=== PATIENT | male | born 1990 | race African-American/Black ===

== ENCOUNTER 2017-11-22 00:37 | Emergency (ER) | payer OTHER ==
--- NOTE | 2017-11-22 00:45 | ER Report ---
History and Physical Time Seen By MD: 00:44 Hx. of Stated Complaint: Emergency senior care HPI/ROS CHIEF COMPLAINT: emergency senior care for suicidal ideation HISTORY OF PRESENT ILLNESS: This is a 26 year old male. He is here with the [employer] [employer] for emergency senior care for depression and suicidal ideation. 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 He was planning on returning to [place], [place] and doing something where he would end his life and no one would find him. He has been depressed. No self harm. Denies any other health problems at this time. Came to light because he had been messaging family back home about his wanting to . They contacted law enforcement here who picked him up to bring him to the hospital. Stressors based on relationship problems and isolation. He is concerned about losing his job by being detained here. REVIEW OF SYSTEMS: Constitutional: No fever or chills. Eyes: No vision changes. ENT: No sore throat. No congestion. Cardiovascular: No chest pain. No palpitations. Respiratory: No cough. No shortness of breath. Gastrointestinal: No abdominal pain. No nausea or vomiting. Genitourinary: No problems with urination. Musculoskeletal: No musculoskeletal pain. Skin: No rashes. Neurological: No dizziness or headache. Allergies: Coded Allergies: No Known Drug Allergies (Unverified , 11/22/17) Home Meds Reported Medications Multivits,Ca,Minerals/Iron/Fa (THERA-M TABLET) 1 Each Tablet, 1 EACH PO DAILY 11/22/17 Nicotine (NICOTROL) 10 Mg/Inh Ctr, 10 MG INH PRN Y for NICOTINE REPLACEMENT 11/22/17 Fluoxetine Hcl (PROZAC) 20 Mg Capsule, 20 MG PO QDAY, CAPSULE 11/22/17 Reviewed Nurses Notes: Yes Constitutional Vital Sign - Last 24 Hours 11/22/17 11/22/17 00:38 04:25 Temp 98.0 Pulse 109 96 Resp 16 12 B/P (MAP) 162/127 170/120 (137) Pulse Ox 98 95 O2 Delivery Room Air Room Air Physical Exam General Appearance: The patient is alert, has no immediate need for airway protection and no current signs of toxicity. Eyes: Pupils equal and round no injection. ENT: Normal oral mucosa. Moist mucous membranes. Neck: Neck is supple and non tender. Respiratory: Chest is non tender, lungs are clear to auscultation. Cardiac: regular rate and rhythm Gastrointestinal: Abdomen is soft and non tender, no masses, bowel sounds normal. Musculoskeletal: Extremities have full range of motion. Skin: No rashes or lesions. DIFFERENTIAL DIAGNOSIS: After history and physical exam differential diagnosis was considered for suicidal ideation on emergency senior care Medical Decision Making Data Points Result Diagram: 11/22/1730911/22/17 031 Laboratory Hematology Test 11/22/17 03:10 11/22/17 03:30 Red Blood Count 5.50 M/uL (4.00-5.60) Mean Corpuscular Volume 85.4 fL (80.0-96.0) Mean Corpuscular Hemoglobin 29.8 pg (26.0-33.0) Mean Corpuscular Hemoglobin Concent 34.9 g/dL (32.0-36.0) Red Cell Distribution Width 13.8 % (11.5-14.5) Mean Platelet Volume 7.7 fL (7.2-11.1) Neutrophils (%) (Auto) 48.3 % (39.4-72.5) Lymphocytes (%) (Auto) 41.6 % (17.6-49.6) Monocytes (%) (Auto) 6.6 % (4.1-12.4) Eosinophils (%) (Auto) 2.5 % (0.4-6.7) Basophils (%) (Auto) 1.0 % (0.3-1.4) Nucleated RBC Relative Count (auto) 0.0 /100WBC Neutrophils # (Auto) 3.9 K/uL (2.0-7.4) Lymphocytes # (Auto) 3.4 K/uL (1.3-3.6) Monocytes # (Auto) 0.5 K/uL (0.3-1.0) Eosinophils # (Auto) 0.2 K/uL (0.0-0.5) Basophils # (Auto) 0.1 K/uL (0.0-0.1) Nucleated RBC Absolute Count (auto) 0.00 K/uL Sodium Level 140 mmol/L (137-145) Potassium Level 3.4 mmol/L (3.5-5.0) Chloride Level 101 mmol/L (98-107) Carbon Dioxide Level 27 mmol/L (22-30) Blood Urea Nitrogen 8 mg/dl (9-21) Creatinine 0.90 mg/dl (0.66-1.25) Glomerular Filtration Rate Calc > 60.0 Random Glucose 118 mg/dl (75-110) Calcium Level 9.6 mg/dl (8.4-10.2) Magnesium Level 2.0 mg/dl (1.7-2.2) Total Bilirubin 0.6 mg/dl (0.2-1.3) Aspartate Amino Transf (AST/SGOT) 34 U/L (0-35) Alanine Aminotransferase (ALT/SGPT) 58 U/L (0-56) Alkaline Phosphatase 73 U/L (0-126) Total Protein 8.5 g/dl (6.3-8.2) Albumin 4.7 g/dl (3.5-5.0) Salicylates Level < 10 mg/L Salicylate Last Dose Date unk Acetaminophen Level < 10 ug/ml Serum Alcohol < 10 mg/dl Urine Color Yellow Urine Clarity Clear Urine pH 6.0 pH (4.8-9.5) Urine Specific [place] 1.010 Urine Protein Negative mg/dL (NEGATIVE) Urine Glucose (UA) Negative mg/dL (NEGATIVE) Urine Ketones 20 mg/dL (NEGATIVE) Urine Blood Negative (NEGATIVE) Urine Nitrite Negative (NEGATIVE) Urine Bilirubin Negative (NEGATIVE) Urine Urobilinogen Negative mg/dL (0.2-1.9) Urine Leukocyte Esterase Negative (NEGATIVE) Urine RBC None /HPF (0-2/HPF) Urine WBC 2 /HPF (0-5/HPF) Urine Squamous Epithelial Cells Few /LPF (</=FEW) Urine Bacteria Negative /HPF (NONE-FEW) Urine Mucus Few /HPF (NONE-FEW) Urine Opiates Screen Negative Urine Barbiturates Screen Negative Ur Tricyclic Antidepressants Screen Negative Urine Phencyclidine Screen Negative Urine Amphetamines Screen Negative Urine Benzodiazepines Screen Negative Urine Cocaine Screen Negative Urine Cannabinoids Screen Negative Chemistry Test 11/22/17 03:10 11/22/17 03:30 White Blood Count 8.1 k/uL (4.5-11.0) Red Blood Count 5.50 M/uL (4.00-5.60) Hemoglobin 16.4 g/dL (14.0-18.0) Hematocrit 46.9 % (42.0-52.0) Mean Corpuscular Volume 85.4 fL (80.0-96.0) Mean Corpuscular Hemoglobin 29.8 pg (26.0-33.0) Mean Corpuscular Hemoglobin Concent 34.9 g/dL (32.0-36.0) Red Cell Distribution Width 13.8 % (11.5-14.5) Platelet Count 216 K/uL (150-450) Mean Platelet Volume 7.7 fL (7.2-11.1) Neutrophils (%) (Auto) 48.3 % (39.4-72.5) Lymphocytes (%) (Auto) 41.6 % (17.6-49.6) Monocytes (%) (Auto) 6.6 % (4.1-12.4) Eosinophils (%) (Auto) 2.5 % (0.4-6.7) Basophils (%) (Auto) 1.0 % (0.3-1.4) Nucleated RBC Relative Count (auto) 0.0 /100WBC Neutrophils # (Auto) 3.9 K/uL (2.0-7.4) Lymphocytes # (Auto) 3.4 K/uL (1.3-3.6) Monocytes # (Auto) 0.5 K/uL (0.3-1.0) Eosinophils # (Auto) 0.2 K/uL (0.0-0.5) Basophils # (Auto) 0.1 K/uL (0.0-0.1) Nucleated RBC Absolute Count (auto) 0.00 K/uL Glomerular Filtration Rate Calc > 60.0 Calcium Level 9.6 mg/dl (8.4-10.2) Magnesium Level 2.0 mg/dl (1.7-2.2) Total Bilirubin 0.6 mg/dl (0.2-1.3) Aspartate Amino Transf (AST/SGOT) 34 U/L (0-35) Alanine Aminotransferase (ALT/SGPT) 58 U/L (0-56) Alkaline Phosphatase 73 U/L (0-126) Total Protein 8.5 g/dl (6.3-8.2) Albumin 4.7 g/dl (3.5-5.0) Salicylates Level < 10 mg/L Salicylate Last Dose Date unk Acetaminophen Level < 10 ug/ml Serum Alcohol < 10 mg/dl Urine Color Yellow Urine Clarity Clear Urine pH 6.0 pH (4.8-9.5) Urine Specific [place] 1.010 Urine Protein Negative mg/dL (NEGATIVE) Urine Glucose (UA) Negative mg/dL (NEGATIVE) Urine Ketones 20 mg/dL (NEGATIVE) Urine Blood Negative (NEGATIVE) Urine Nitrite Negative (NEGATIVE) Urine Bilirubin Negative (NEGATIVE) Urine Urobilinogen Negative mg/dL (0.2-1.9) Urine Leukocyte Esterase Negative (NEGATIVE) Urine RBC None /HPF (0-2/HPF) Urine WBC 2 /HPF (0-5/HPF) Urine Squamous Epithelial Cells Few /LPF (</=FEW) Urine Bacteria Negative /HPF (NONE-FEW) Urine Mucus Few /HPF (NONE-FEW) Urine Opiates Screen Negative Urine Barbiturates Screen Negative Ur Tricyclic Antidepressants Screen Negative Urine Phencyclidine Screen Negative Urine Amphetamines Screen Negative Urine Benzodiazepines Screen Negative Urine Cocaine Screen Negative Urine Cannabinoids Screen Negative Toxicology Test 11/22/17 03:10 11/22/17 03:30 Salicylates Level < 10 mg/L Salicylate Last Dose Date unk Acetaminophen Level < 10 ug/ml Serum Alcohol < 10 mg/dl Urine Opiates Screen Negative Urine Barbiturates Screen Negative Ur Tricyclic Antidepressants Screen Negative Urine Phencyclidine Screen Negative Urine Amphetamines Screen Negative Urine Benzodiazepines Screen Negative Urine Cocaine Screen Negative Urine Cannabinoids Screen Negative Urinalysis Test 11/22/17 03:30 Urine Color Yellow Urine Clarity Clear Urine pH 6.0 pH (4.8-9.5) Urine Specific [place] 1.010 Urine Protein Negative mg/dL (NEGATIVE) Urine Glucose (UA) Negative mg/dL (NEGATIVE) Urine Ketones 20 mg/dL (NEGATIVE) Urine Blood Negative (NEGATIVE) Urine Nitrite Negative (NEGATIVE) Urine Bilirubin Negative (NEGATIVE) Urine Urobilinogen Negative mg/dL (0.2-1.9) Urine Leukocyte Esterase Negative (NEGATIVE) Urine RBC None /HPF (0-2/HPF) Urine WBC 2 /HPF (0-5/HPF) Urine Squamous Epithelial Cells Few /LPF (</=FEW) Urine Bacteria Negative /HPF (NONE-FEW) Urine Mucus Few /HPF (NONE-FEW) ED Course/Re-evaluation ED Course The patient was opposed to having his blood drawn. I did speak with them and actually called and spoke with Dr. Jaramillo on speaker phone with the patient. Discussed that having the blood tests was not optional based on the protocols associated with being emergency senior care was regarding this. The patient did voice that he felt like his rights were being violated and I told him that I would definitely document this in the chart for him. Blood was obtained, no age or abnormalities noted. Urine also obtained. Discussed the case with Dr. Jaramillo and the patient will be admitted to behavioral health. Decision to Disposition Date: Nov 22, 2017 Decision to Disposition Time: 04:19 Depart Departure Latest Vital Signs Vital Signs Date Time Temp Pulse Resp B/P (MAP) Pulse Ox O2 Delivery O2 Flow Rate FiO2 11/22/17 04:25 96 12 170/120 (137) 95 Room Air 11/22/17 00:38 98.0 Impression: Primary Impression: Suicidal ideation Condition: Condition Unchanged Disposition: XFER TO [facility] LOIS BROWNING MD Nov 22, 2017 00:44
--- NOTE | 2017-11-22 01:13 | BHS - Psychiatric Evaluation ---
ER - Title 25 MHE Evaluation Title 25 Evaluation Patient Detained By: Law Enforcement Referral Source: Law enforcement, patient Date Patient Detained: Nov 22, 2017 Time Patient Detained: 00:49 Date Nursing Home Expires: Nov 26, 2017 Time Nursing Home Expires: 00:01 Legal Status: Police Hold: No Legal Status: Residence: Other ([place]) Assessment Data Provided By: Law Enforcement HPI/ROS: CHIEF COMPLAINT: emergency fpc for suicidal ideation HISTORY OF PRESENT ILLNESS: This is a 26 year old male. He is here with the [place] [employer] for emergency fpc for depression and suicidal ideation. 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 He was planning on returning to [place], [place] and doing something where he would end his life and no one would find him. He has been depressed. No self harm. Denies any other health problems at this time. Came to light because he had been messaging family back home about his wanting to . They contacted law enforcement here who picked him up to bring him to the hospital. Stressors based on relationship problems and isolation. He is concerned about losing his job by being detained here. REVIEW OF SYSTEMS: Constitutional: No fever or chills. Eyes: No vision changes. ENT: No sore throat. No congestion. Cardiovascular: No chest pain. No palpitations. Respiratory: No cough. No shortness of breath. Gastrointestinal: No abdominal pain. No nausea or vomiting. Genitourinary: No problems with urination. Musculoskeletal: No musculoskeletal pain. Skin: No rashes. Neurological: No dizziness or headache. Admit due to SI or Attempt: Yes Suicide Plan: No Plan Current Suicide Plan No definitive plan Alcohol or Drugs Involved: No Is Patient Info Reliable: Yes Is Collateral Info Reliable: Yes Mental Status Exam General Appearance: Cooperative, Polite, Good Interaction, Tearful Speech: Clear, Spontaneous, Normal Rate, Normal Rhythm, Normal Volume, Normal Tone Mood: Dysthmic/Depressed Affect: Sad Thought Process: Organized Thought Content: Suicidal Ideation, No Homicidal Ideation Sensorium: Clear Cognition: Alert & Oriented-Person, Alert & Oriented-Place, Alert & Oriented- Time, Hdwma-Dpzxwyqu-Ddmsxoilg Memory: Other (Normal) Insight Judgment: Good Current Risk & History Current Dangerous Risk Assessm: Current Suicide Ideation Past Dangerous Risk Assessm: Suicide Ideation-last 6mo Previous Suicide Attempt: No Previous Attempt Previous Psychiatric Illness: No Previous Psychiatric Treatment: No Risk Assessment & Disposition Evaluated Risk Assessment: Risk evaluated to be high requiring further evaluation by psychiatry. Impression: Primary Impression: Suicidal ideation Meets Mental Illness Req.: Yes Meets Dangerousness Req.: Yes Emergency Nursing Home to be: Upheld Date of Decision: Nov 22, 2017 Time of Decision: 02:52 Patient is Medically Stable at: Yes Disposition: LOIS DELGADO MD Nov 22, 2017 01:13
[2017-11-22 03:19] LABS: PLATELET COUNT, AUTOMATED 216 K/uL (150-450)
[2017-11-22 04:25] VITALS: BP 170/120
[2017-11-22] MEDS ORDERED: FLUO-202 PO (10:14)
[2017-11-22] MEDS ORDERED: MULT-859 PO (10:14)
[2017-11-22] MEDS ORDERED: NIC10R INH (10:14)
== END 2017-11-22 04:34 ==
LOC: EDBD → ER 00:42
DX: R45.851 Suicidal ideations (principal); Z79.899 Other long term (current) drug therapy
CPT/HCPCS: 36415; 80305; 80320; 80329; 81001; 82040; 82247; 82310; 82374; 82435; 82565; 82947; 83735; 84075; 84132; 84155; 84295; 84443; 84450; 84460; 84520; 85025; 99284

== ENCOUNTER 2017-11-22 04:19 | Inpatient (IN) | payer OTHER ==
[~2017-11-22] VITALS: Ht 172.7 cm; Wt 116.1 kg
[2017-11-22] MEDS ORDERED: NICOTINE INH SYSTEM 10 MG/INH INH PRN (04:35)
[2017-11-22] MEDS ORDERED: NICOTINE CARTRIDGE 1 EA PO PRN (04:35)
[2017-11-22 05:10] VITALS: BP 167/6
[2017-11-22] MEDS ORDERED: ACETAMINOPHEN 325 MG TAB PO PRN (07:55)
[2017-11-22] MEDS ORDERED: MAG HYD/AL HYD/SIMETH 30ML UDC PO PRN (07:55)
[2017-11-22] MEDS ORDERED: MULTIVITAMINS PO SCH (09:00)
[2017-11-22] MEDS ORDERED: FLUoxetine HCL 20 MG CAP PO SCH (10:00)
[2017-11-22] MEDS ORDERED: NIC10R INH (10:14)
[2017-11-22] MEDS ORDERED: FLUO-202 PO (10:14)
[2017-11-22] MEDS ORDERED: MULT-859 PO (10:14)
--- NOTE | 2017-11-24 11:53 | HISTORY AND PHYSICAL ---
COMBINED HISTORY AND PHYSICAL/DISCHARGE SUMMARY DATE OF ADMISSION: November 22, 2017 DATE OF DISCHARGE: November 22, 2017 DATE OF INTERVIEW The patient was interviewed at 8:30 a.m. on November 22, 2017 for this dictation. CHIEF COMPLAINT "People were afraid I was going to commit suicide." HISTORY OF PRESENT ILLNESS This is the first ever psychiatric admission for this 27-year-old male who presented to the emergency room in the company of police on an involuntary mcc because of suicidal statements. 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 He broke up with a girlfriend of eight years about five weeks ago and has been trying to get back with her. Tonight he was talking with her on the phone, and he was crying and told her he did not want to live anymore if she did not get back with him. She got worried and called his brother. He talked to his brother on the phone for a while. Then, his mother and grandmother also tried to call him, but he did not answer the phone. His girlfriend was worried about him, so she called his [employer] company. The [employer] called him, and he told them he was fine, but he was crying, therefore the [employer] called the police. The highway patrol picked him up at he [employer] and brought him here. He states that he was forced to come here against his will, and that it was just because he was crying. The patient denies suicidal ideation. He says he was upset last night and saying these things to try to influence the girlfriend to get back together with him. He admits that over the past two weeks, he has been feeling more depressed and stressed about the breakup. Two days ago, she told him that she likes another man named Will better than him, and he says, "I felt my heart drop into my stomach". The patient acknowledges that he did make suicidal statements, but tells us that he has no intention of carrying through with any self harm behavior. He reiterates that he was just trying to influence her. The patient denies any past history of treatment for depression. He does acknowledge that he has had mild depressive symptoms along with mild anxiety symptoms for several years. He reports a number of psychosocial stressors, including being homeless on and off since the age of 17. 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 The patient denies changes in sleep or appetite. His activity level has been good. 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 He talks about possibly going back to school someday, and would like to continue to save up money and get his own apartment. PAST PSYCHIATRIC HISTORY The patient has never had any inpatient nor outpatient treatment. PAST MEDICAL HISTORY Last fall, he was hospitalized for three days with appendicitis, but has since recovered. FAMILY PSYCHIATRIC HISTORY The patient's mother has been treated for depression. SOCIAL HISTORY The patient was born and raised in [place], [place]. He has several siblings and has lived much of his life with his mother. There were times when he was living in foster care as a young child. The patient graduated high school. He attended college to the sophomore level. 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 He says he has been homeless on and off throughout his twenties and is often couch surfing. However , recently he did move back in with his mother. 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 He has never been , and has been with his ex-girlfriend for the past five years. VICTIM ISSUES The patient denies any history of physical or sexual abuse. SUBSTANCE ABUSE HISTORY The patient rarely drinks alcohol, he says maybe during family gatherings on holidays. He has tried marijuana a few times, and he says that it did relax him. 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 PHYSICAL EXAMINATION Please see the emergency room physician's report. Vital signs: Temperature 98.4 , pulse 85, blood pressure 167/65, pulse ox is 98 on room air. LABORATORY DATA CBC was within normal limits. Urinalysis was normal except for high ketones. Chemistry panel was essentially within normal limits with the following minor exceptions: Potassium low at 3.4, BUN low at 8, random glucose high at 118, ALT high at 58, total protein high at 8.5. Urine drug screen was negative. Serum alcohol was nil. MENTAL STATUS EXAM GENERAL APPEARANCE, BEHAVIOR AND ATTITUDE: The patient was well groomed and cooperative, dressed in scrubs. He displayed normal psychomotor activity with good eye contact. Several times when he was talking about breaking up with his girlfriend, he became tearful. He talked about feeling like his heart was broken. He spoke of themes like, "I know I need to just get over her, but it hurts so much". MOOD: He described depression at about a 5 out of 10 and anxiety at about a 4 out of 10. AFFECT: Variable. He displayed full range with relaxed smiling and laughing with us at appropriate times, however, when we spoke about his recent breakup, he did become tearful a couple of times. THOUGHT PROCESSES: Logical and goal-directed. THOUGHT CONTENT: Negative for any current suicidal ideation. He did acknowledge making suicidal statements last night, but says he has no intention to follow through on this behavior. He acknowledges that he was trying to influence his girlfriend to get back together with him. The patient denies any auditory hallucinations, visual hallucinations, homicidal ideation and delusions. COGNITION: He is alert and fully oriented to person, place, time and situation. He was a good and forthcoming historian. MEMORY: Intact for immediate, recent and remote recall. INTELLIGENCE: Average, based on interview. INSIGHT AND JUDGMENT: Good. DIAGNOSES PER DSM-V Adjustment disorder with depressed and anxious mood. Underlying persistent mild depressive disorder. Generalized anxiety disorder. Obsessive traits. PLAN The patient was admitted to [facility], and he was maintained on suicide precautions. We had a lengthy interview with him, meeting with myself as well as our nurse and clinical therapist. The patient participating actively in our meeting and was forthcoming and honest about the events of last night. The patient reiterated that he did not have any suicidal intention. We discussed stages of grief that he was going through regarding his breakup. He is future oriented and forward thinking. He was able to use a sense of humor, and looked back on last night candidly, admitting that he was trying to manipulate his girlfriend. He acknowledged a desire to get back to work and to seek support at home. 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 However, he is willing to meet with his tool machinist, who he talks with almost on a daily basis, and he was willing to start Prozac 20 mg daily, which we advised him to take for persistent depressive symptoms, especially during this breakup, persistent anxiety symptoms that he has had for several years as well as obsessive compulsive traits. The patient responded well to our support, and because he wanted to get back on the road so that he did not risk losing his job , and because we did not believe that he was a risk to himself or others, nor was he mentally ill according to the title 25 definition, since the patient was not considered a danger to himself or others, we did discharge him. He will follow up in [place], [place] with his tool machinist and with his extensive family and friends who support him. [place]
== END 2017-11-22 11:07 | disposition home or self-care (01) | DRG 882 ==
LOC: EDBD 04:19 → BHS 04:19
PROVIDERS: ADMIT Psychiatry & Neurology Psychiatry; ATTEND Psychiatry & Neurology Psychiatry
DX: F43.23 Adjustment disorder with mixed anxiety and depressed mood (principal); F34.1 Dysthymic disorder; F41.1 Generalized anxiety disorder; Z73.3 Stress, not elsewhere classified; Z63.5 Disruption of family by separation and divorce